=== PATIENT | male | born 1960 | race African-American/Black ===

== ENCOUNTER 2021-09-19 02:30 | Inpatient (IN) | payer MEDICAID ==
[~2021-09-19] VITALS: Ht 185.4 cm; Wt 79.8 kg
[2021-09-19] MEDS ORDERED: IPRATROPIUM BROMIDE (0.02%) 0.5MG/2.5ML NEB HHN STA (02:44)
[2021-09-19] MEDS ORDERED: ALBUTEROL (0.083%) 2.5MG/3ML NEB HHN STA (02:44)
[2021-09-19] MEDS ORDERED: ONDANSETRON HCL 4MG/2ML INJ IV STA (02:44)
[2021-09-19] MEDS ORDERED: METHYLPREDNISOLONE SOD SUCC 125 MG/2 ML VIAL IV STA (02:44)
[2021-09-19] MEDS ORDERED: NITROGLYCERIN 50MG PREMIX 250 ML IV ONE (02:45)
[2021-09-19] MEDS ORDERED: FUROSEMIDE 40MG/4ML VIAL IV ONE (02:45)
[2021-09-19] MEDS ORDERED: MAGNESIUM 2 G PREMIX 50 ML IV ONE (02:45)
[2021-09-19 03:07] LABS: BASOPHILS % 1.3 % (0.0-2.0); HEMATOCRIT. 42.7 % (42.0-52.0); HEMOGLOBIN. 14.2 g/dL (14.0-18.0); LYMPHOCYTES % 58.4 % (20.0-50.0); MEAN CORPUSCULAR HEMOGLOBIN 31.4 pg (28.0-32.0); MEAN CORPUSCULAR VOLUME 94.6 fL (80.0-94.0); MEAN PLATELET VOLUME 9.1 fl (7.4-10.4); MONOCYTES % 5.5 % (2.0-8.0); NEUTROPHILS % 32.8 % (40.0-76.0); PLATELET 314 x1000/uL (130-400); RED BLOOD CELL COUNT 4.51 mill/uL (4.7-6.1); RED CELL DISTRIBUTION WIDTH 14.3 % (11.6-14.6)
[2021-09-19 03:11] LABS: CHLORIDE 109 mEq/L (98-107)
[2021-09-19 04:34] LABS: BG BASE EXCESS 0.4 mmol/L (-2.0-2.0); BG CARBOXYHEMOGLOBIN 1.1 % (0.5-1.5); BG DEOXYHEMOGLOBIN 2.1 % (0.0-5.0); BG FRACTION INSPIRED OXYGEN 60; BG HCO3 ACT 26.3 mmol/L (22.0-26.0); BG METHEMOGLOBIN 0.3 % (0.0-1.5); BG OXYGEN SATURATION 97.9 % (92.0-98.5); BG OXYHEMOGLOBIN 96.5 % (94.0-97.0); BG PCO2 46.9 mmHg (35.0-45.0); BG PH 7.366 (7.350-7.450); BG PO2 109.7 mmHg (75.0-100.0); BG SAMPLE SITE RIGHT RADIAL; BG TOTAL HEMOGLOBIN 13.9 g/dL (12.0-18.0); BG TOTAL RESPIRATORY RATE 23 b/min; BG VENT MODE MASK - BIPAP
[2021-09-19] MEDS ORDERED: ONDANSETRON HCL 4MG/2ML INJ IV PRN (09:00)
[2021-09-19] MEDS ORDERED: HYDRALAZINE HCL 100MG TABLET PO ONE (09:00)
[2021-09-19] MEDS ORDERED: IPRATROPIUM/ALBUTEROL 0.5-3(2.5)MG/3ML NEB HHN PRN (09:00)
[2021-09-19] MEDS: AMLODIPINE 10MG TABLET PO SCH (09:23)
[2021-09-19] MEDS: FUROSEMIDE 40MG/4ML VIAL IVP SCH ×2 (09:24→12:14)
[2021-09-19] MEDS ORDERED: HYDRALAZINE HCL 100MG TABLET PO SCH (14:00)
[2021-09-19 14:24] VITALS: BP 165/95
[2021-09-19 16:00] VITALS: BP 161/99
[2021-09-19] MEDS: HYDRALAZINE HCL 100MG TABLET PO SCH ×2 (17:58→21:10)
[2021-09-19 20:00] VITALS: BP 151/98
[2021-09-19] MEDS ORDERED: IPRATROPIUM/ALBUTEROL 0.5-3(2.5)MG/3ML NEB HHN SCH (20:00)
[2021-09-19] MEDS: LOSARTAN POTASSIUM 50 MG TABLET PO SCH (21:10)
[2021-09-20] VITALS: BP 162/108
[2021-09-20] MEDS ORDERED: CLONIDINE 0.1MG TABLET PO PRN (01:00)
[2021-09-20 04:00] VITALS: BP 168/97
[2021-09-20] MEDS: HYDRALAZINE HCL 100MG TABLET PO SCH ×2 (05:51→14:00)
[2021-09-20 07:22] LABS: CHLORIDE 103 mEq/L (98-107)
[2021-09-20 07:56] LABS: EOSINOPHILS % 0.2 % (0.0-5.0); HEMOGLOBIN. 12.7 g/dL (14.0-18.0); LYMPHOCYTES % 35.3 % (20.0-50.0); MEAN CORPUSCULAR HEMOGLOBIN 30.4 pg (28.0-32.0); MEAN CORPUSCULAR VOLUME 93.1 fL (80.0-94.0); MEAN PLATELET VOLUME 9.2 fl (7.4-10.4); MONOCYTES % 8.5 % (2.0-8.0); PLATELET 286 x1000/uL (130-400); RED BLOOD CELL COUNT 4.19 mill/uL (4.7-6.1); RED CELL DISTRIBUTION WIDTH 14.2 % (11.6-14.6)
[2021-09-20 07:58] VITALS: BP 152/104
[2021-09-20] MEDS: AMLODIPINE 10MG TABLET PO SCH (08:38)
[2021-09-20] MEDS: LOSARTAN POTASSIUM 50 MG TABLET PO SCH (08:39)
[2021-09-20] MEDS ORDERED: INFLUENZA VACCINE 05/PF 0.5 ML SYRINGE IM ONE (09:00)
[2021-09-20] MEDS ORDERED: PNEUMOCOCCAL 23-VAL P-SAC VAC 0.5 ML IM ONE (09:00)
[2021-09-20] MEDS ORDERED: GUAIFENESIN-DM 200MG-20MG/10ML UDC PO PRN (10:00)
[2021-09-20 12:00] VITALS: BP 160/108
[2021-09-20] MEDS: CLONIDINE 0.2MG TABLET PO SCH ×2 (12:12→17:07)
[2021-09-20] MEDS ORDERED: ACETAMINOPHEN 325MG TABLET PO PRN (12:15)
[2021-09-20 16:00] VITALS: BP 157/114
[2021-09-20 17:28] VITALS: BP 150/106
[2021-09-20] MEDS ORDERED: LOSARTAN POTASSIUM 50 MG TABLET PO SCH (21:00)
[2021-09-21] MEDS ORDERED: AMLO10TA80 MT (09:01)
[2021-09-21] MEDS ORDERED: FLUT1DIS3 INH (09:01)
[2021-09-21] MEDS ORDERED: CLON-457 MT (09:01)
[2021-09-21] MEDS ORDERED: ALBU18HF2 IH (09:01)
[2021-09-21] MEDS ORDERED: LOSA100T32 MT (09:01)
[2021-09-21] MEDS ORDERED: P20 MT (09:01)
[2021-09-21] MEDS ORDERED: HYDR100T26 MT (09:01)
== END 2021-09-20 18:28 | disposition home or self-care (01) | DRG 133 ==
LOC: ER 02:30 → EDBEDREQ 08:42 → EDBEDREQTM 08:42 → EDBEDREQSVC 10:12 → ENRESERV 13:31 → 7EST 16:15
PROVIDERS: ADMIT Internal Medicine; ATTEND Internal Medicine
PROC: 5A09357 Assistance with Respiratory Ventilation, Less than 24 Consecutive Hours, Continuous Positive Airway Pressure (ICD-10-PCS; principal; 2021-09-19)
DX: J96.01 Acute respiratory failure with hypoxia (principal); J44.1 Chronic obstructive pulmonary disease with (acute) exacerbation; E87.8 Other disorders of electrolyte and fluid balance, not elsewhere classified; I10 Essential (primary) hypertension; F32.A Depression, unspecified; Z20.822 Contact with and (suspected) exposure to COVID-19; E11.9 Type 2 diabetes mellitus without complications; F17.210 Nicotine dependence, cigarettes, uncomplicated; T46.5X6A Underdosing of other antihypertensive drugs, initial encounter; Y92.89 Other specified places as the place of occurrence of the external cause; Z71.6 Tobacco abuse counseling
CPT/HCPCS: 36415; 36600; 71045; 80048; 80053; 82375; 82805; 83036; 83880; 84484; 85025; 87426; 90686; 90732; 93005; 93306; 94640; 94660; 99291; J1940; J2405; J2930; J3475; J3490

== ENCOUNTER 2022-05-06 10:47 | Emergency (ER) | payer MEDICAID ==
[~2022-05-06] VITALS: Ht 185.4 cm; Wt 82.0 kg
[~2022-05-06 10:47] MED LIST: ALBU18HF2 IH; AMLO10TA80 MT; CLON-457 MT; FLUT1DIS3 INH; HYDR100T26 MT; LOSA100T32 MT; P20 MT
[2022-05-06] MEDS ORDERED: HYDROCHLOROTHIAZIDE 25MG TABLET PO ONE (11:30)
[2022-05-06] MEDS ORDERED: AMLODIPINE 5MG TABLET PO ONE (11:30)
[2022-05-06 11:56] LABS: BASOPHILS % 1.1 % (0.0-2.0); EOSINOPHILS % 1.4 % (0.0-5.0); HEMOGLOBIN. 12.8 g/dL (14.0-18.0); MEAN CORPUSCULAR HEMOGLOBIN 30.8 pg (28.0-32.0); MEAN CORPUSCULAR VOLUME 93.8 fL (80.0-94.0); MEAN PLATELET VOLUME 8.8 fl (7.4-10.4); MONOCYTES % 7.9 % (2.0-8.0); NEUTROPHILS % 61.6 % (40.0-76.0); PLATELET 217 x1000/uL (130-400); RED BLOOD CELL COUNT 4.16 mill/uL (4.7-6.1); RED CELL DISTRIBUTION WIDTH 15.1 % (11.6-14.6)
[2022-05-06 12:04] LABS: CHLORIDE 108 mEq/L (98-107)
[2022-05-06 12:20] LABS: CLARITY URINE CLEAR (CLEAR); COLOR URINE YELLOW (YELLOW); KETONES URINE TRACE (NEGATIVE); LEUKOCYTE ESTERASE URINE NEGATIVE (NEGATIVE); NITRITE URINE NEGATIVE (NEGATIVE); OCCULT BLOOD URINE NEGATIVE (NEGATIVE); PH URINE 5.5 (4.5-8.0); PROTEIN URINE 1+ (NEGATIVE); SPECIFIC GRAVITY URINE 1.026 (1.005-1.030)
[2022-05-06 12:55] VITALS: BP 197/129
[2022-05-06] MEDS ORDERED: METRONIDAZOLE 500MG TABLET PO ONE (13:15)
[2022-05-06] MEDS ORDERED: METR-167 MT (13:15)
== END 2022-05-06 13:31 | disposition home or self-care (01) ==
LOC: ER 10:47
DX: I10 Essential (primary) hypertension (principal); A59.9 Trichomoniasis, unspecified; Z13.9 Encounter for screening, unspecified; Z91.14 Patient's other noncompliance with medication regimen
CPT/HCPCS: 36415; 80048; 81003; 85025; 93005; 99284